=== PATIENT | male | born 1950 | race Caucasian/White ===

== ENCOUNTER 2018-01-06 14:29 | Inpatient (IN) | payer MEDICARE, OTHER ==
[2018-01-06] MEDS ORDERED: NS 0.9% 1000 ML* 1,000 ML IV ONE (15:58)
[2018-01-06] MEDS ORDERED: Morphine INJ* 4 MG/ML 1 ML CARPUJECT IV ONE ×2 (15:58→17:35)
[2018-01-06] MEDS ORDERED: Morphine INJ* 10 MG/ML 1 ML CARPUJECT ONE (16:11)
[2018-01-06 16:27] LABS: Urine Appearance Cloudy; Urine Blood Negative (Negative); Urine Color Yellow; Urine Ketones Negative (Negative); Urine Protein Negative (Negative); Urine Specific Gravity 1.019 (1.010-1.030); Urine Urobilinogen Negative (Negative)
[2018-01-06 17:20] LABS: ABS Basophils 0 10^3/ul (0-0.2); ABS Eosinophils 0.1 10^3/ul (0-0.6); ABS Lymphocytes 0.4 10^3/ul (1.0-4.8); ABS Monocytes 0.5 10^3/ul (0-0.8); ABS Neutrophils 2.9 10^3/ul (1.5-7.7); ABS Nucleated RBC 0 10^3/ul; Eosinophil % 2.8 % (0-6); Hematocrit 40 % (42-52); Hemoglobin 13.5 g/dl (14.0-18.0); Lymphocyte % 11.3 % (25-47); Mean Corpuscular HGB Conc 34 g/dl (31-36); Mean Corpuscular Hemoglobin 31 pg (27-31); Mean Corpuscular Volume 91 fL (80-94); Mean Platelet Volume 9 um3 (7.4-10.4); Nucleated Red Blood Cells % 0; Platelet Count 134 10^3/ul (150-450); Red Blood Count 4.37 10^6/ul (4.0-5.4); Red Cell Distribution Width 15 % (10.5-15); White Blood Count 3.9 10^3/ul (3.5-10.8)
--- NOTE | 2018-01-06 17:46 | RAD ---
INDICATION: RIGHT flank pain. Possible infected RIGHT kidney. Post cholecystectomy. COMPARISON: March 25, 2014 CT. TECHNIQUE: Multidetector CT images were obtained from the lung bases to the ischial tuberosities. Evaluation of the viscera is limited without IV contrast. Multiplanar reformation. REPORT: Unremarkable visualized inferior thorax. Post cholecystectomy. Unremarkable unenhanced liver. Negative for biliary dilatation. Moderately atrophic pancreas without suspicious finding. Upper normal size spleen. Negative for CT abnormality of the upper GI, small bowel, retrocecal appendix, or colon through the mid rectum. At the inferior rectum and anus there is nonspecific soft tissue thickening which extends posteriorly through the subcutaneous fat at the RIGHT margin of the ksenia cleft to the skin measuring up to 5 cm AP by 4.5 cm transverse by 5.4 cm cephalocaudal. This is a nonspecific finding and may represent scarring from a previous decubitus ulcer with history of decubitus ulcer, current inflammatory change, or potentially a neoplastic process. Negative for ascites, extra enteric gas, or significant hernias. Normal adrenal glands. Negative for nephrolithiasis or hydronephrosis. Unremarkable nondilated ureters. Distended urinary bladder with diffuse mild wall thickening. Extensive coarse calcification at the prostate. Symmetric seminal vesicles. Negative for lymphadenopathy. Atherosclerotic calcification of normal diameter abdominal aorta and iliac arteries. Physiologic distention of the IVC. Significant cephalocaudal widening of the L2-L3 disc space with osseous erosion of the inferior endplate of L2 and superior endplate of L3. In addition the L2 and L3 vertebral bodies are sclerotic compared with the remaining vertebral bodies. Paravertebral inflammatory change. Assessment of the central canal is limited by CT. Advanced degenerative arthropathy of the hips. Nonspecific chronic indolent calcification about the skeletal musculature surrounding the hips similar to the prior exam. Advanced diffuse skeletal muscle atrophy. No fracture evident. IMPRESSION: 1. The radiographic findings are highly suspicious for osteomyelitis discitis at the L2-L3 level. While there are some features that favor chronic involvement including sclerosis of both vertebral bodies given presence of paravertebral soft tissue inflammatory change and new finding compared with only relevant prior exam of 2013 acute osteomyelitis discitis should be considered. Epidural extension of the inflammatory processes not excluded on the basis of this exam. Correlate with clinical assessment and consider contrast-enhanced MRI for further evaluation if deemed appropriate. 2. At the inferior rectum and anus there is nonspecific soft tissue thickening which extends posteriorly through the subcutaneous fat at the RIGHT margin of the cleft to the skin measuring up to 5 cm AP by 4.5 cm transverse by 5.4 cm cephalocaudal. This is a nonspecific finding and may represent scarring from a previous decubitus ulcer with history of decubitus ulcer, current acute inflammatory change, or potentially a neoplastic process. 3. Negative for obstructive uropathy or perinephric inflammatory stranding to suggest pyelonephritis. Results discussed with Dr. No 01/06/2018 5:42 PM EST
[2018-01-06] MEDS ORDERED: Morphine INJ* 4 MG/ML 1 ML SYRINGE (NEW SYRINGE VERSION) ONE (17:51)
[2018-01-06] MEDS ORDERED: Bisacodyl SUPP* 10 MG SUPP PR PRN (19:44)
--- NOTE | 2018-01-06 19:53 | ED ---
Rohit Null Rebecca, scribed for Keyshawn No MD on 01/06/18 at 1551 . Back Pain - HPI Summary HPI Summary: Pt is a 67 y/o M who presents to ED c/o R flank pain. Sx began 2 days ago in the afternoon, worsening last night. Pain has been intermittent since onset, every few minutes, described as a sharp, stabbing pain. When present, pain is severe, ranked 8/10. Sx aggravated by sitting up and alleviated by nothing. Additionally c/o cough. Denies hematuria, dysuria, fever, chills, SOB and diaphoresis. PMHx kidney infections with the last incidence a few years ago. Sees his urologist every 6 months and is scheduled to see the office this month. PMHx paraplegia since 1974. - History of Current Complaint Chief Complaint: EDFlankPain Stated Complaint: POSSIBLE KIDNEY INFECTION RIGHT FLANK PAIN Hx Obtained From: Patient Onset/Duration: Still Present Timing: Intermittent Back Pain Location: Is Discrete @ - R flank Severity Currently: Severe Pain Intensity: 8 Pain Scale Used: 0-10 Numeric Character: Sharp Aggravating Symptom(s): Other - Sitting up Alleviating Symptom(s): Nothing Associated Signs And Symptoms: Positive: Other - Cough - Allergies/Home Medications Allergies/Adverse Reactions: Allergies Allergy/AdvReac Type Severity Reaction Status Date / Time MS Cephalosporins Allergy Unknown Verified 08/29/17 10:17 [Cephalosporins] Reaction Details MS Ciprofloxacin Allergy Unknown Verified 08/29/17 10:17 [Ciprofloxacin] Reaction Details MS Gentamicin [Gentamicin] Allergy Unknown Verified 08/29/17 10:17 Reaction Details MS Penicillins [Penicillins] Allergy Unknown Verified 08/29/17 10:17 Reaction Details MS Vancomycin [Vancomycin] Allergy Unknown Verified 08/29/17 10:17 Reaction Details Home Medications: Home Medications Cholecalciferol TAB* [Vitamin D TAB*] 5,000 units PO DAILY 01/06/18 [History Confirmed 01/06/18] Sulfamethox/Trimethoprim DS* [Bactrim DS 800/160 TAB*] 1 tab PO DAILY 01/06/18 [ History Confirmed 01/06/18] PMH/Surg Hx/FS Hx/Imm Hx Endocrine/Hematology History: Denies: Hx Diabetes Cardiovascular History: Denies: Hx Hypertension, Hx Pacemaker/ICD History: Reports: Hx Kidney Infection, Other Problems/Disorders - UTI'S Denies: Hx Renal Disease Musculoskeletal History: Reports: Other Musculoskeletal History - paraplegic, HX CELLULTISIS Sensory History: Reports: Hx Contacts or Glasses, Hx Vision Problem - EYE SURGERY, OPTIC NEURITIS Denies: Hx Hearing Aid Opthamlomology History: Reports: Hx Contacts or Glasses, Hx Vision Problem - EYE SURGERY, OPTIC NEURITIS Neurological History: Reports: 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 ( NO SENSORY/MOTOR FUNCTION BELOW T8), Other Neuro Impairments/Disorders - GUILLIAN BARRE SYNDROME Psychiatric History: Denies: Hx Panic Disorder - Surgical History Surgery Procedure, Year, and Place: gallbladder removal,optic neuritis, eye surgeries FOR LAZY EYE, questionable Guillan Novi syndrome, myocutaneous flap for right buttock decubitus ulcer 1992, R foot surgery, Hx Anesthesia Reactions: No Infectious Disease History: No Infectious Disease History: Reports: Hx of Known/Suspected MRSA - HX IN LEG WOUNDS Denies: Traveled Outside the [place] in Last 30 Days - Family History Known Family History: Positive: Hypertension, Other - [place] - Social History Alcohol Use: Daily Alcohol Amount: 1 drink per day Substance Use Type: Reports: None Type: Cigarettes Amount Used/How Often: half pack. day Length of Time of Smoking/Using Tobacco: 35 years Have You Smoked in the Last Year: Yes Review of Systems Negative: Fever, Chills, Skin Diaphoresis Positive: Cough. Negative: Shortness Of Breath Positive: flank pain - Right. Negative: dysuria, hematuria All Other Systems Reviewed And Are Negative: Yes Physical Exam - Summary Physical Exam Summary: Appearance: Well-appearing, Well-nourished Skin: Warm, Dry, No rash, 2 sores on the right foot, over the head of the 5th metatarsal and midfoot, laterally, that is about 1 cm in size with no surrounding cellulitis or erythema with no sensation over the area Eyes: Normal, PERRL, EOMI, sclera anicteric ENT: Normal Neck: Supple, nontender Respiratory: Clear to auscultation Cardiovascular: S1, S2, no murmur, no rub, no gallop Abdomen: Soft, nontender, no organomegaly Bowel sounds: Present Musculoskeletal: No edema, pulses symmetrical, no palpable pain, anesthesia up to T8 Neurological: A&Ox3, cranial nerves II-XII WNL, follows commands, answers questions appropriately, anesthesia up to T8 Psychiatric: affect normal, behavior appropriate, dressed appropriately, judgment intact Rectal: Some scarring from previous decubitus ulcers in the rectum and some prolapse of the anus Triage Information Reviewed: Yes Vital Signs On Initial Exam: Initial Vitals Temp Pulse Resp BP Pulse Ox 98.9 F 78 20 160/88 96 01/06/18 14:39 01/06/18 14:39 01/06/18 14:39 01/06/18 14:39 01/06/18 14:39 Vital Signs Reviewed: Yes Diagnostics - Vital Signs Vital Signs Temp Pulse Resp BP Pulse Ox 01/06/18 14:39 98.9 F 78 20 160/88 96 - Laboratory Result Diagrams: 01/06/18 17:10 01/06/18 17:10 Lab Statement: Any lab studies that have been ordered have been reviewed, and results considered in the medical decision making process. - CT Abd/Pel CT CT Interpretation: Positive (See Comments) - 1. The radiographic findings are highly suspicious for osteomyelitis discitis at the L2-L3 level. While there are some features that favor chronic involvement including sclerosis of both vertebral bodies given presence of paravertebral soft tissue inflammatory change and new finding compared with only relevant prior exam of 2013 acute osteomyelitis discitis should be considered. Epidural extension of the inflammatory processes not excluded on the basis of this exam. Correlate with clinical assessment and consider contrast-enhanced MRI for further evaluation if deemed appropriate. 2. At the inferior rectum and anus there is nonspecific soft tissue thickening which extends posteriorly through the subcutaneous fat at the RIGHT margin of the ksenia cleft to the skin measuring up to 5 cm AP by 4.5 cm transverse by 5.4 cm cephalocaudal. This is a nonspecific finding and may represent scarring from a previous decubitus ulcer with history of decubitus ulcer, current acute inflammatory change, or potentially a neoplastic process. 3. Negative for obstructive uropathy or perinephric inflammatory stranding to suggest pyelonephritis. Results discussed with Dr. No 2017 5:[address] No reviewed this radiology report. CT Interpretation Completed By: Radiologist Re-Evaluation - Re-Evaluation First Eval Re-Evaluation Time: 17:46 Comment: Rectal examination was done which shows some scarring from previous decubitus ulcers in the rectum and some prolapse of the anus. Second Eval Re-Evaluation Time: 18:10 Comment: Continues to have some pain, but less than before Back Pain Course/Dx - Course Assessment/Plan: Pt is a 67 y/o M who presents to ED c/o intermittent sharp, stabbing R flank pain for 2 days ago worsening last night. Pain is severe, ranked 8/10. Sx aggravated by sitting up. Additionally c/o cough. Denies hematuria, dysuria, fever, chills, SOB and diaphoresis. PMHx kidney infections with the last incidence a few years ago. Sees his urologist every 6 months and is scheduled to see the office this month. PMHx paraplegia since 1974. UA reveals UTI. CT Abd/Pel results above. In ED course, pt received fluids and morphine which improved sx. Discussed care of pt with Trevin Escamilla who accepts pt for admission. He will be admitted with Dx of osteomyelitis and UTI. He understands and agrees. Allergies and elevated BP noted. - Diagnoses Provider Diagnoses: Osteomyelitis, UTI (urinary tract infection) - Provider Notifications Discussed Care Of Patient With: Trevin Escamilla Time Discussed With Above Provider: 17:50 Instructed by Provider To: Other - Accepts pt for admission Discharge - Discharge Plan Condition: Fair Disposition: ADMITTED TO [facility] Referrals: No Primary Care Phys,NOPCP [Primary Care Provider] - The documentation as recorded by the Rohit gottlieb Rebecca accurately reflects the service I personally performed and the decisions made by me, Keyshawn No MD.
[2018-01-06] MEDS ORDERED: NS 0.9% IVPB SCH (20:00)
[2018-01-06] MEDS ORDERED: TIGECYCLINE IVPB SCH (20:00)
[2018-01-06] MEDS ORDERED: Vancomycin per Pharmacy* NOTE FOLLOW UP PRN (20:24)
[2018-01-06] MEDS ORDERED: Vancomycin(*) 1,500 MG in NS 0.9% 250 ML* 250 ML IVPB ONE (20:30)
--- NOTE | 2018-01-06 20:45 | RAD ---
Indication: Osteomyelitis discitis Comparison: CT abdomen of the same date and January 01, 2014 chest radiograph. Technique: Upright AP 2010 hours. FINDINGS: Accounting for superimposed soft tissues with large body habitus the lungs and pleural spaces are clear. The heart, pulmonary vasculature, and mediastinal contours are unremarkable. IMPRESSION: No evidence for acute intrathoracic disease.
[2018-01-06] MEDS: HYDROmorphone INJ* 2 MG/ML CARPUJECT SYRINGE IV SLOW PU PRN (21:18)
[2018-01-06] MEDS: Heparin VIAL(*) 5000 UNITS/ML VIAL (FIVE THOUSAND) SUBCUT SCH (21:19)
[2018-01-06] MEDS: Tamsulosin CAP* 0.4 MG PO SCH (21:20)
[2018-01-06] MEDS: NS 0.9% 1000 ML* 1,000 ML IV SCH (21:20)
[2018-01-06] MEDS: Ascorbic Acid TAB* 500 MG PO SCH (21:20)
[2018-01-06] MEDS: Methenamine Hippurate TAB* 1 GM TAB PO SCH (21:20)
[2018-01-06] MEDS: Cefepime 2 GM in Dextrose(*) 2 GM/50 ML BAG IV SCH (21:21)
--- NOTE | 2018-01-07 00:16 | HP ---
CC: TAMI; Dr. Jani Vargas * ADMISSION HISTORY AND PHYSICAL: DATE OF ADMISSION: 01/06/18 PRIMARY CARE DOCTOR: TAMI. MY ATTENDING WHILE IN THE HOSPITAL: Dr. Lisa Duenas.* (DICTATED BY BHAVIK KRISHNAN) PRIMARY UROLOGIST: Dr. Jani Vargas. CHIEF COMPLAINT: Severe intermittent right-sided abdominal pain. HISTORY OF PRESENT ILLNESS: Mr. Trinidad is a 67-year-old male with a past medical history significant for paraplegia at the T8 level from, I believe, transverse myelitis in 1974, decubitus ulcers with osteomyelitis of ischium, recurrent UTIs, optic neuritis, recurrent cellulitis of his lower extremities, who presents with 3 days of sharp, nonradiating, localized pain around what he describes his right kidney and points to his right side underneath his costal margin. The patient states this feels exactly like when he has previous pyelonephritis. The patient denies any associated symptoms such as fevers, chills, nausea, vomiting, diarrhea. The patient denies any palliating or provoking factors. It is not worse with movement or palpation. The patient states it is better with pain medication. The patient denies other sick contacts or recent illness. The patient states that he has had a decubitus ulcer in his back, which is fully healed now post muscle flap and that he has recurrent ulcer on his foot, which is only open wound, which he sees a medical office assistant instructor, but has not in longtime because he has been busy. The patient did not have any sensation from T8 down, so cannot state whether this is painful or it has gotten worse. The patient has also not followed with his primary care doctor in quite a while. The patient follows with Dr. Vargas as his primary caregiver and is currently on Hiprex and Bactrim for suppression of UTIs. The patient had an abdominal CT scan to evaluate for pyelonephritis while in the hospital and it was deemed that the patient had possible L2-L3 diskitis on CT scan. As such, we were asked to evaluate for admission. PAST MEDICAL HISTORY: Paraplegia at the T8 level, decubitus ulcer with associated osteomyelitis of the ischium, resolved, recurrent UTI, optic neuritis , cellulitis, transverse myelitis, decubitus ulcer of the foot, rotator cuff left shoulder pathology, and right shoulder biceps tendinitis. PAST SURGICAL HISTORY: Cholecystectomy, muscle flap. MEDICATIONS: 1. Advil 400 mg p.o. q.6 hours as needed. 2. Dulcolax suppository 10 mg ND as needed for constipation every 2 to 3 days. 3. Vitamin C 500 mg p.o. daily. 4. Hiprex 500 mg p.o. four times a day. 5. Flomax 0.4 mg p.o. daily. 6. Bactrim double strength 1 tab p.o. daily. 7. Vitamin D 5000 units p.o. daily. ALLERGIES: The patient has allergies to CEPHALOSPORINS, which include a gastrointestinal upset and diarrhea when taking KEFLEX. The patient has had a reaction of a rash to PENICILLIN, a reaction of a rash to VANCOMYCIN and GENTAMICIN, and a more severe rash when taking CIPRO on his butt that he describes as welting. FAMILY HISTORY: The patient's mother at age 72 of metastatic lung cancer. The patient's father at age 93 of heart attack. He also had diabetes type 2 and high blood pressure. The patient's maternal grandfather at age 58 of heart attack. The patient's maternal grandmother at age 75 with complications of diabetes. The patient's paternal grandfather of prostate cancer. The patient's paternal grandmother at 75 of renal failure. SOCIAL HISTORY: The patient smokes 3 to 4 cigarettes daily. The patient drinks 1 to 2 martinis containing 2 ounces a piece of vodka nightly. The patient denies ever using illicit drugs. The patient is employed as an service line coordinator. The patient is twice, in 1991. The patient is currently and has 2 children from each marriage. REVIEW OF SYSTEMS: A 14-point review of systems was reviewed and is negative except as above. PHYSICAL EXAMINATION GENERAL: The patient is a 67-year-old male, who appears stated age and sitting comfortably in bed, in no acute distress. VITAL SIGNS: Upon arrival to the emergency department, temperature 98.9, pulse rate 78, respiratory rate 20, oxygen saturation 96% on room air, blood pressure 168/88. HEENT: Head: Normocephalic, atraumatic. Sclerae anicteric. No conjunctival injection. Left-sided exotropia. Nasal mucosa moist. Oral mucosa moist. No pharyngeal erythema, discharge, or exudate. NECK: Supple, nontender. No lymphadenopathy. No carotid bruit auscultated. No tenderness over the spinous processes. RESPIRATORY: Rhonchi in the bilateral lower lobes, which improved with deep breathing. No adventitious lung sounds. Good air exchange bilaterally. Egophony negative. CARDIAC: Regular rate and rhythm. No clicks, murmurs, gallops, or rubs. Pulses 2+ in the bilateral dorsalis pedis, posterior tibialis, and radial areas. 1+ pitting edema in the bilateral lower extremities with chronic venous stasis ulcers. ABDOMEN: Soft, nontender, nondistended. Bowel sounds present. Normoactive in all 4 quadrants. No hepatosplenomegaly. No tenderness to palpation over the area of the patient's pain. GENITOURINARY: No suprapubic tenderness or CVA tenderness. The patient has a [place] catheter and is able to urinate without straight catheterization. NEURO: Cranial nerves II through XII intact except for above-stated exotropia. The patient has 5/5 strength and intact sensation to light touch in bilateral upper extremities. The patient has no sensation or strength in the bilateral lower extremities. The patient's reflexes are 2+ in bilateral biceps areas. The patient has no reflexes in the bilateral lower extremities. Babinski is nonreactive bilaterally. PSYCHIATRIC: The patient is pleasant and cooperative. Alert and oriented x3. SKIN: The patient had an approximately 2 cm x 2 cm ulcer on his lower foot without exposed bone or surrounding erythema. The patient has a healed decubitus ulcer on his buttock with surgical scars consistent with a myocutaneous flap. The patient has venous stasis ulcers in the bilateral lower extremities. The patient has no other rashes. DIAGNOSTIC STUDIES/LAB DATA: White blood cell count 3.9, red blood cell count 4.34, hemoglobin 13.5, hematocrit 40, MCV 91, MCH 31, MCHC 34, RDW 15, platelet count 134, MPV 9, lymphocyte percentage 7.2. Sodium 135, potassium 4.4, chloride 103, carbon dioxide 28, anion gap 4, BUN 12, creatinine 0.52, BUN- creatinine ratio 23, glucose 95, calcium 8.3. Bilirubin 1.3, AST 11, ALT 9, alkaline phosphatase 65. Total protein 5.9, albumin 3.4, globulin 2.5. Urine color yellow, cloudy, pH 5.0, specific gravity 1.019, positive nitrites and leukocyte esterase, 3+ white blood cells, 3+ red blood cells, positive squamous epithelial cells, 1+ bacteria. Abdomen and pelvis CT read as radiographic findings highly suspicious for osteomyelitis, diskitis of the L2-L3 level. There were some features to favor chronic involvement of both vertebral bodies, given presence of paravertebral soft tissue inflammatory change and new finding compared with only relevant prior exam of 2014 of acute osteomyelitis, diskitis should be considered. Epidural extension of inflammatory process is not excluded on the basis of this exam, correlate with clinical assessment and consider contrast-enhanced MRI for further evaluation if deemed appropriate. At the inferior rectum and anus, there is a nonspecific tissue thickening extends posterior through the subcutaneous fat to the right margin of the cleft to the skin measuring up to 5 cm AP x 5 cm transverse x 5.4 cm cephalocaudal. This is nonspecific finding and may represent scarring from previous decubitus ulcer with history of decubitus ulcer, acute inflammatory change represents the neoplastic process. Negative for obstructive uropathy or perinephric inflammatory stranding to suggest pyelonephritis. ASSESSMENT AND PLAN: Impression: 1. The patient is a 67-year-old male with paraplegia at the T8 level, who presents with sudden pain in his abdomen consistent with previous pyelonephritis but was found to have CT findings consistent with osteomyelitis, diskitis at the L2-L3 level. The patient also had a grossly positive UA and chronic ulcer on his foot. The patient will be admitted to the hospital for IV antibiotics, Neurosurgical and Infectious Disease consult, Wound consult, and supportive care. 2. Possible osteomyelitis, diskitis. The patient has CT findings consistent with osteomyelitis and diskitis at L2-L3. Neurosurgery and Infectious Disease consulted given the patient's reactions and lack of antibiotics that would cover urinary tract infection, diskitis, as well as possible foot pathogens. The patient will be started on cefepime and vancomycin despite reactions, which consists of GI upset with Keflex and possible rash when on vancomycin. When discussing this with Neurosurgery, they do not think that intervention will be needed at this time due to the patient's already paraplegic status and risks of said procedure. The patient will have an MRI of his spine with contrast to further elucidate his condition. Unable to determine if the patient has any neurological or spinal cord damage from this due to paraplegic status in his lower extremities. 3. Probably urinary tract infection. The patient has a grossly positive UA and long history of urinary tract infections. The patient is to be covered by cefepime. The patient should be continued on his Hiprex. The patient has no evidence of pyelonephritis on the CT scan. We will stop the patient's Bactrim in the hospital, but should be continued at discharge for suppression of urinary tract infection. 4. Paraplegia. Pursue aggressive anti-pressure therapies for the patient's flap and take pressure off his feet. 5. FEN. The patient will have fluids, normal saline at 125 mL an hour. The patient will have regular unrestricted diet. 6. Code status. The patient wants to be a full code. The patient's surrogate decision maker is his , Bridget Trinidad. 7. DVT prophylaxis. The patient will have heparin subcu and SCDs because he is a high risk. The patient will be admitted to medical floor as anticipated protracted length of stay. TIME SPENT: Approximately 75 minutes was spent on this admission, 45 of which was spent [id number] with the patient obtaining history and physical and discussing treatment plan. This plan has been discussed with my attending, Dr. Lisa Duenas, and she is in agreement. BHAVIK KRISHNAN [id number]/CPS #: [id number]
[2018-01-07] MEDS: Heparin VIAL(*) 5000 UNITS/ML VIAL (FIVE THOUSAND) SUBCUT SCH ×3 (05:28→21:49)
[2018-01-07] MEDS: HYDROmorphone INJ* 2 MG/ML CARPUJECT SYRINGE IV SLOW PU PRN (05:33)
[2018-01-07 05:44] LABS: ABS Basophils 0 10^3/ul (0-0.2); ABS Eosinophils 0 10^3/ul (0-0.6); ABS Lymphocytes 0.8 10^3/ul (1.0-4.8); ABS Monocytes 0.4 10^3/ul (0-0.8); ABS Neutrophils 1.8 10^3/ul (1.5-7.7); ABS Nucleated RBC 0 10^3/ul; Eosinophil % 1.2 % (0-6); Hematocrit 38 % (42-52); Hemoglobin 12.7 g/dl (14.0-18.0); Lymphocyte % 25.9 % (25-47); Mean Corpuscular HGB Conc 34 g/dl (31-36); Mean Corpuscular Hemoglobin 31 pg (27-31); Mean Corpuscular Volume 92 fL (80-94); Mean Platelet Volume 9 um3 (7.4-10.4); Nucleated Red Blood Cells % 0.1; Platelet Count 123 10^3/ul (150-450); Red Cell Distribution Width 15 % (10.5-15); White Blood Count 3.1 10^3/ul (3.5-10.8)
[2018-01-07 05:51] LABS: EGFR Non-African American 213.9 (>60)
[2018-01-07] MEDS: NS 0.9% 1000 ML* 1,000 ML IV SCH (07:53)
[2018-01-07] MEDS: Cefepime 2 GM in Dextrose(*) 2 GM/50 ML BAG IV SCH ×2 (07:54→19:34)
[2018-01-07] MEDS: Cholecalciferol TAB* 1000 UNITS PO SCH (09:05)
[2018-01-07] MEDS: Ascorbic Acid TAB* 500 MG PO SCH ×4 (09:05→21:47)
[2018-01-07] MEDS: Methenamine Hippurate TAB* 1 GM TAB PO SCH ×4 (09:05→21:47)
[2018-01-07] MEDS: Tamsulosin CAP* 0.4 MG PO SCH ×2 (09:05→21:47)
[2018-01-07] MEDS: Vancomycin(*) 1,000 MG in NS 0.9% 250 ML* 250 ML IVPB SCH ×3 (09:07→23:25)
--- NOTE | 2018-01-07 16:20 | PN ---
Subjective Date of Service: 01/07/18 Interval History: feeling better today. pain is completely resolved. afebrile since admission. Objective Active Medications: Ascorbic Acid (Vitamin C Tab*) 500 mg PO QID [facility] Last Admin: 01/07/18 13:46 Dose: 500 mg Bisacodyl (Dulcolax Supp*) 10 mg ME .Q2-3DAYS PRN PRN Reason: CONSTIPATION Cholecalciferol (Vitamin D Tab*) 5,000 units PO DAILY [facility] Last Admin: 01/07/18 09:05 Dose: 5,000 units Heparin Sodium (Porcine) (Heparin Vial(*)) 5,000 units SUBCUT Q8HR [facility] Last Admin: 01/07/18 13:46 Dose: 5,000 units Hydromorphone HCl (Dilaudid Inj*) 2 mg IV SLOW PU Q4H PRN PRN Reason: PAIN Last Admin: 01/07/18 05:33 Dose: 2 mg Cefepime HCl (Maxipime 2 Gm In Dextrose Duplex (*)) 2 gm in 50 mls @ 100 mls/ hr IV Q12H [facility] Last Admin: 01/07/18 07:54 Dose: 100 mls/hr Sodium Chloride (Ns 0.9% 1000 Ml*) 1,000 mls @ 125 mls/hr IV PER RATE [facility] Last Admin: 01/07/18 07:53 Dose: 125 mls/hr Vancomycin HCl 1,000 mg/ (Sodium Chloride) 250 mls @ 125 mls/hr IVPB Q8H [facility] Last Admin: 01/07/18 15:48 Dose: 125 mls/hr Methenamine Hippurate (Hiprex Tab*) 0.5 gm PO QID [facility] Last Admin: 01/07/18 13:45 Dose: 0.5 gm Pharmacy Consult (Vancomycin Per Pharmacy*) 1 note FOLLOW UP . PRN PRN Reason: PER PROTOCOL Pharmacy Profile Note (Vancomycin Trough Check) 1 note FOLLOW UP 0700 ONE Stop: 01/08/18 07:01 Tamsulosin HCl (Flomax Cap*) 0.4 mg PO BID [facility] Last Admin: 01/07/18 09:05 Dose: 0.4 mg Vital Signs - 8 hr 01/07/18 01/07/18 11:33 15:33 Temperature 98.5 F 98.0 F Pulse Rate 56 67 Respiratory 18 18 Rate Blood Pressure 119/59 130/67 (mmHg) O2 Sat by Pulse 94 94 Oximetry Oxygen Devices in Use Now: None Appearance: alert, nontoxic Eyes: - - left eye strabismus, PERRL Ears/Nose/Mouth/Throat: NL Teeth, Lips, Gums Neck: NL Appearance and Movements; NL JVP Respiratory: Symmetrical Chest Expansion and Respiratory Effort, Clear to Auscultation Cardiovascular: NL Sounds; No Murmurs; No JVD, RRR Abdominal: NL Sounds; No Tenderness; No Distention, No Hepatosplenomegaly, - - [place] cath in place with clear yellow urine Lymphatic: No Cervical Adenopathy Extremities: - Skin: - - 1cm ulcer on plantar surface of right foot, scant drainage, no erythema Neurological: Alert and Oriented x 3, - - b/l lower extremities flaccid. Result Diagrams: 01/07/18 05:27 01/07/18 05:27 Assess/Plan/Problems-Billing Assessment: - Patient Problems (1) Osteomyelitis Current Visit: Yes Status: Acute Code(s): M86.9 - OSTEOMYELITIS, UNSPECIFIED SNOMED Code(s): 32309107 Comment: concern for L2-L3 osteo on CT an MRI would confirm this, and rule in or out an epidural abscess. while there may be no neurologic benefit or harm from interventing if there is an abscess since he is already paralyzed, it may be worth knowing about an abscess because iv antibiotics are unlikely to adequately penetrate it. check MRI L-spine tomorrow follow up blood cultures consult ID (2) Diskitis Current Visit: Yes Status: Acute Code(s): M46.40 - DISCITIS, UNSPECIFIED, SITE UNSPECIFIED SNOMED Code(s): 7892434 Comment: as above (3) UTI (urinary tract infection) Current Visit: Yes Status: Acute Comment: culture shows e. coli; sensitivities pending (4) Paraplegia Current Visit: Yes Status: Acute Code(s): G82.20 - PARAPLEGIA, UNSPECIFIED SNOMED Code(s): 96597344 Comment: since 1974 from transverse myelitis
[2018-01-07] MEDS ORDERED: Gadoteridol* (CONTRAST) 279.3 MG/ML 10 ML IV ONE (17:52)
--- NOTE | 2018-01-07 18:49 | RAD ---
Indication: CT findings of osteomyelitis discitis at L2-L3. Comparison: January 06, 2018 CT. Technique: [employer] 1.5 Nathalie [id number] with GEM suite. Pre and postcontrast MRI lumbar sacral spine with 19 mL ProHance IV contrast. Report: Marked enlargement and T2 hyperintensity at the L2-L3 disc. Patchy enhancement throughout the L2 and L3 vertebral bodies on the postcontrast series with extension to the posterior elements with involvement of the bilateral L2-L3 facet joints and surrounding posterior multifidus lumborum musculature. Obscuration of the normal paraspinal soft tissue planes with heterogeneous enhancement on the postcontrast series. Based on correlation with CT the inflammatory process involving both of the atrophic psoas muscles and surrounds the posterior third margin of the infrarenal abdominal aorta and inferior vena cava. Epidural extension of inflammatory process greater on the RIGHT than the LEFT at the level of the inferior endplate of L2 measuring up to 5 mm anterior posterior and extending over 2.5 cm cephalocaudal. The epidural phlegmon/microabscess collection superimposed on advanced posterior element osteoarthritis results in severe acquired spinal stenosis at L2-L3. No additional sites of acute inflammatory change evident. Negative for fracture, spondylolysis, or spondylolisthesis. Multilevel degenerative spondylosis and posterior element osteoarthritis. At L4-L5 degenerative spondylosis and facet joint osteoarthritis results in mild bilateral foraminal stenosis. At L5-S1 there is severe bilateral foraminal stenosis. IMPRESSION: Osteomyelitis discitis at L2-L3 with associated epidural extension and along with hypertrophic posterior element hypertrophy resulting severe acquired central canal stenosis. Extension of the inflammatory process to the paravertebral soft tissues including the atrophic psoas muscles, abutting the posterior margins of the infrarenal abdominal aorta and inferior vena cava, and posterior multifidus lumborum musculature surrounding the facet joints.
[2018-01-08] MEDS: Heparin VIAL(*) 5000 UNITS/ML VIAL (FIVE THOUSAND) SUBCUT SCH ×3 (05:39→22:03)
[2018-01-08] MEDS: NS 0.9% 1000 ML* 1,000 ML IV SCH ×2 (05:42→22:30)
[2018-01-08 06:47] LABS: ABS Basophils 0 10^3/ul (0-0.2); ABS Eosinophils 0.1 10^3/ul (0-0.6); ABS Lymphocytes 0.8 10^3/ul (1.0-4.8); ABS Monocytes 0.3 10^3/ul (0-0.8); ABS Neutrophils 1.8 10^3/ul (1.5-7.7); ABS Nucleated RBC 0 10^3/ul; Eosinophil % 4.8 % (0-6); Hematocrit 36 % (42-52); Hemoglobin 12.7 g/dl (14.0-18.0); Lymphocyte % 26.2 % (25-47); Mean Corpuscular HGB Conc 35 g/dl (31-36); Mean Corpuscular Hemoglobin 31 pg (27-31); Mean Corpuscular Volume 90 fL (80-94); Mean Platelet Volume 9 um3 (7.4-10.4); Nucleated Red Blood Cells % 0.1; Platelet Count 123 10^3/ul (150-450); Red Blood Count 4.04 10^6/ul (4.0-5.4); Red Cell Distribution Width 15 % (10.5-15); White Blood Count 3.1 10^3/ul (3.5-10.8)
[2018-01-08] MEDS ORDERED: Vancomycin Trough Check NOTE FOLLOW UP ONE (07:00)
[2018-01-08 07:12] LABS: EGFR Non-African American 241.6 (>60)
[2018-01-08] MEDS: Vancomycin(*) 1,000 MG in NS 0.9% 250 ML* 250 ML IVPB SCH (08:19)
[2018-01-08] MEDS: Cholecalciferol TAB* 1000 UNITS PO SCH (08:19)
[2018-01-08] MEDS: Methenamine Hippurate TAB* 1 GM TAB PO SCH ×4 (08:19→20:13)
[2018-01-08] MEDS: Ascorbic Acid TAB* 500 MG PO SCH ×4 (08:19→20:13)
[2018-01-08] MEDS: Tamsulosin CAP* 0.4 MG PO SCH ×2 (08:19→20:13)
--- NOTE | 2018-01-08 08:26 | CONSULT ---
Consult Consult: WILY Flank pain HPI 67 yo patient with 40 plus year history of paraplegia presumably from diagnosis of transverse myelitis. Presented to ER with flank pain which historically for him has been indicator of pyelonephritis or UTI. As part of evaluation CT of abdomen/pelvis done suggesting discitis at L2-3 Patient admitted for antibiotic therapy and MRI done yesterday confirming discitis/osteo at L2-3 No change in sensory level per patient which is generally at T8. Exam consistent with paraplegia with T 8 sensory level [id number] Discitis Plan-no indication for surgery which patient has expressed no interest in anyway Needs PIC line with retirement antibiotics Patient anxious for discharge home where he is better able to perform his routine Full consult dictated
--- NOTE | 2018-01-08 10:41 | ECHO ---
Patient: MORA STYLES [facility] Rec#: [id number] : 1950 Date: 01/08/2018 Age: 67y Height: 180.3 cm / 71.0 in Weight: 90.7 kg / 199.9 lbs Sex: M BSA: 2.1 Room#: [facility] Admit Date#: 01/06/2018 Type: Inpatient Referring: Trevin Elena Reading: Charlie Carmen MD [employer] Manager: Jannie Costello RN RDCS Transthoracic Echocardiogram Indication: Sepsis, osteomyelitis BP: 148/72 HR: 61 Rhythm: NSR Findings History: Transverse myelitis, paraplegia, decubitus ulcers with osteomyelitis of the ischium, chronic foot ulcer, UTIs, smoker Technical Comments: The study quality is fair. The study is technically limited due to poor acoustic windows. The study is technically limited due to patient body habitus. The study is technically limited due to the patient's smoking history. Completed at 0955. Left Ventricle: The left ventricular chamber size is normal. Septal wall hypertrophy is observed. Global left ventricular wall motion and contractility are within normal limits. Left ventricular systolic function is at the lower limits of normal. The estimated ejection fraction is 50-55%. Normal left ventricular diastolic filling is observed. Left Atrium: The left atrial chamber size is normal. Right Ventricle: The right ventricular cavity size is normal. The right ventricular global systolic function is low normal. Right Atrium: The right atrial cavity size is normal. Aortic Valve: The aortic valve structure is not well visualized. The aortic valve leaflets are mildly thickened. There is no evidence of aortic regurgitation. There is no evidence of aortic stenosis. Mitral Valve: The mitral valve leaflets are mildly thickened. Mild subvalvular thickening of the mitral valve is visualized. There is mild mitral regurgitation. There is no evidence of mitral stenosis. Tricuspid Valve: The tricuspid valve leaflets are normal. There is trace to mild tricuspid regurgitation. There is no tricuspid stenosis. Pulmonic Valve: The pulmonic valve structure is not well visualized. There is no evidence of pulmonic regurgitation. There is no pulmonic stenosis. Pericardium: There is no significant pericardial effusion. A pericardial fat pad is visualized. Aorta: The ascending aorta is not well visualized. There is no dilatation of the aortic arch. There is no dilation of the aortic root. Pulmonary Artery: The main pulmonary artery is not well visualized. Venous: The inferior vena cava appears normal in size. There is a greater than 50% respiratory change in the inferior vena cava dimension. Conclusions The study is technically limited due to poor acoustic windows. Global left ventricular wall motion and contractility are within normal limits. Left ventricular systolic function is at the lower limits of normal. The estimated ejection fraction is 50-55%. The aortic valve leaflets are mildly thickened. There is no evidence of aortic regurgitation. Mild subvalvular thickening of the mitral valve is visualized. There is mild mitral regurgitation. There is trace to mild tricuspid regurgitation. There is no significant pericardial effusion. No obvious vegeatations however image quality is not good enough to excluded Measurements Name Value Normal Range RVDdMajor (2D) 3.3 cm (2.2 - 4.4) RAd ISD 4CH 4.9 cm (3.4 - 4.9) RA (A4C)W 3.7 cm (2.9 - 4.6) IVSd (2D) 1.1 cm (0.6 - 1) LVPWd (2D) 1 cm (0.6 - 1) LVIDd (2D) 3.7 cm (3.6 - 5.4) LVIDs (2D) 2.4 cm - LV FS (2D) 35 % (25 - 45) Aortic Annulus 1.8 cm (1.4 - 2.6) Ao root diameter (2D) 3.2 cm (2.1 - 3.5) Aortic arch 2.6 cm (1.8 - 3.4) LA dimension (AP) 2D 3.3 cm (2.3 - 3.8) LAd ISD 4CH 4.3 cm (2.9 - 5.3) LA ISD 4CH W 3.8 cm (2.5 - 4.5) Name Value Normal Range LA ESV SP 4CH (A/L) 42 ml - LA ESV SP 2CH (A/L) 39 ml - LA ESV BP (A/L) 41 ml - LA ESV BP (A/L) index 19.2 ml/m2 - LA ESV SP 4CH (MOD) 36 ml - LA ESV SP 2CH (MOD) 35 ml - Name Value Normal Range MV E-wave Vmax 0.81 m/sec - MV deceleration time 215 msec - MV A-wave Vmax 0.77 m/sec - MV E:A ratio 1 ratio - LV septal e' Vmax 0.12 m/sec - LV lateral e' Vmax 0.12 m/sec - LV E:e' septal ratio 6.8 ratio - LV E:e' lateral ratio 6.8 ratio - Name Value Normal Range AV Vmax 1.1 m/sec - AV VTI 25.3 cm - AV peak gradient 4.4 mmHg - AV mean gradient 2.7 mmHg - LVOT Vmax 0.99 m/sec - LVOT VTI 20.9 cm - LVOT peak gradient 3.9 mmHg - LVOT mean gradient 1.9 mmHg - SEGUN Vmax 0.57 m/sec - Name Value Normal Range TR Vmax 2.5 m/sec - TR peak gradient 25 mmHg - RAP 3 mmHg - RVSP 28 mmHg - IVC diameter 1.7 cm - Name Value Normal Range PV Vmax 0.8 m/sec -
[2018-01-08] MEDS: Cefepime 2 GM in Dextrose(*) 2 GM/50 ML BAG IV SCH ×2 (12:08→12:17)
[2018-01-08] MEDS: Vancomycin(*) 1,250 MG in NS 0.9% 250 ML* 250 ML IVPB SCH ×2 (16:21→23:31)
--- NOTE | 2018-01-08 17:37 | PN ---
Subjective Date of Service: 01/08/18 Interval History: no overnight events, he feels better. pain is gone. Family History: Unchanged from Admission Social History: Unchanged from Admission Past Medical History: Unchanged from Admission Objective Active Medications: Ascorbic Acid (Vitamin C Tab*) 500 mg PO QID [facility] Last Admin: 01/08/18 13:49 Dose: 500 mg Bisacodyl (Dulcolax Supp*) 10 mg CO .Q2-3DAYS PRN PRN Reason: CONSTIPATION Cholecalciferol (Vitamin D Tab*) 5,000 units PO DAILY [facility] Last Admin: 01/08/18 08:19 Dose: 5,000 units Heparin Sodium (Porcine) (Heparin Vial(*)) 5,000 units SUBCUT Q8HR [facility] Last Admin: 01/08/18 13:51 Dose: 5,000 units Hydromorphone HCl (Dilaudid Inj*) 2 mg IV SLOW PU Q4H PRN PRN Reason: PAIN Last Admin: 01/07/18 05:33 Dose: 2 mg Sodium Chloride (Ns 0.9% 1000 Ml*) 1,000 mls @ 125 mls/hr IV PER RATE [facility] Last Admin: 01/08/18 05:42 Dose: 125 mls/hr Vancomycin HCl 1,250 mg/ (Sodium Chloride) 250 mls @ 125 mls/hr IVPB Q8H [facility] Last Admin: 01/08/18 16:21 Dose: 125 mls/hr Ceftriaxone Sodium 2 gm/ (Sodium Chloride) 100 mls @ 200 mls/hr IVPB Q24H [facility] Methenamine Hippurate (Hiprex Tab*) 0.5 gm PO QID [facility] Last Admin: 01/08/18 13:49 Dose: 0.5 gm Pharmacy Consult (Vancomycin Per Pharmacy*) 1 note FOLLOW UP . PRN PRN Reason: PER PROTOCOL Pharmacy Profile Note (Vancomycin Trough Check) 1 note FOLLOW UP 0700 ONE Stop: 01/10/18 07:01 Tamsulosin HCl (Flomax Cap*) 0.4 mg PO BID [facility] Last Admin: 01/08/18 08:19 Dose: 0.4 mg Vital Signs - 8 hr 01/08/18 01/08/18 11:20 15:17 Temperature 98.3 F 98.5 F Pulse Rate 58 60 Respiratory 17 16 Rate Blood Pressure 143/73 156/85 (mmHg) O2 Sat by Pulse 96 97 Oximetry Oxygen Devices in Use Now: None Appearance: well appearing, nontoxic Eyes: No Scleral Icterus, - - left eye strabismus Ears/Nose/Mouth/Throat: NL Teeth, Lips, Gums Neck: NL Appearance and Movements; NL JVP Respiratory: Symmetrical Chest Expansion and Respiratory Effort, Clear to Auscultation Cardiovascular: NL Sounds; No Murmurs; No JVD, RRR Abdominal: NL Sounds; No Tenderness; No Distention, - - no cva tenderness Lymphatic: No Cervical Adenopathy Neurological: - - no point tenderness over spinous processes. flaccid lower extremities. 1cm ulcer plantar surface of right foot at base of hallux Result Diagrams: 01/08/18 06:29 01/08/18 06:33 Microbiology and Other Data: Microbiology 01/06/18 18:30 Aerobic Blood Culture - Preliminary Blood Venous No Growth Day 1 Anaerobic Blood Culture - Preliminary No Growth Day 1 01/06/18 18:35 Aerobic Blood Culture - Preliminary Blood Venous No Growth Day 1 Anaerobic Blood Culture - Preliminary No Growth Day 1 Assess/Plan/Problems-Billing Assessment: 67 yo man with T8 paralysis since 1974 due to transverse myelitis admitted with flank pain that he thought was pyelonephritis but CT showed diskitis, and MRI now shows osteomyelitis and epidural abscess. - Patient Problems (1) Epidural abscess Current Visit: Yes Status: Acute Code(s): G06.2 - EXTRADURAL AND SUBDURAL ABSCESS, UNSPECIFIED SNOMED Code(s): 67730365 Comment: at L2-3 with no neurologic sequelae due to paralysis from T8 still, appreciate ID and Neurosurgery impression re: conservative versus operative management of this abscess continue vanc/cefepime for now; blood cultures remain negative, so drainage would be helpful if just to know what organism to treat will order picc (2) Osteomyelitis Current Visit: Yes Status: Acute Code(s): M86.9 - OSTEOMYELITIS, UNSPECIFIED SNOMED Code(s): 92157240 Comment: as above; continue vanc and cefepime (3) Diskitis Current Visit: Yes Status: Acute Code(s): M46.40 - DISCITIS, UNSPECIFIED, SITE UNSPECIFIED SNOMED Code(s): 1285901 Comment: as above (4) UTI (urinary tract infection) Current Visit: Yes Status: Acute Comment: culture shows e. coli sensitive to cefepime (5) Paraplegia Current Visit: Yes Status: Acute Code(s): G82.20 - PARAPLEGIA, UNSPECIFIED SNOMED Code(s): 27589202 Comment: since 1974 from transverse myelitis Status and Disposition: plan for picc tomorrow; dispo pending surgical re-evaluation
[2018-01-08] MEDS ORDERED: cefTRIAXone(*) 2 GM in NS 0.9% 100 ML* 100 ML IVPB SCH (18:00)
[2018-01-08] MEDS: Collagenase 250 MG/GM OINT* 30 GM TOPICAL SCH (19:50)
[2018-01-08] MEDS ORDERED: Cefepime 2 GM in Dextrose(*) 2 GM/50 ML BAG IV SCH (22:00)
--- NOTE | 2018-01-09 01:18 | CONS ---
CONSULTATION REPORT: DATE OF CONSULT: 01/08/18 REQUESTING PROVIDER: BHAVIK Velasquez CONSULTING SERVICE: Infectious Disease. REASON FOR CONSULT: Vertebral osteo, diskitis and epidural abscess. IMPRESSION: 1. Right flank and abdominal pain. CT showed and was confirmed by MRI vertebral osteo, diskitis at L2- L3 with an epidural abscess and paravertebral and psoas phlegmon. It is usually gram-positive, particularly staphylococcus; however, he does have chronic urinary tract infections due to Escherichia coli and that is a consideration as well given the connection with Batsen's plexus. 2. Long-standing T8 spinal level due to transverse myelitis. 3. Decubitus ulcer with ischial osteomyelitis, treated with long-term IV antibiotics. 4. Optic neuritis. 5. Allergy listed to CEPHALOSPORIN causing GI upset and diarrhea. He is tolerating cefepime. Rash due to PENICILLIN. Rash due to VANCOMYCIN, which he has not developed so far while on it. Rash to CIPRO, it sounds like hives. RECOMMENDATIONS: Continue vancomycin goal trough 15 to 20. Stop cefepime. We will start ceftriaxone 2 g a day given the E. coli he grows as it is ceftriaxone sensitive. He will need 8 weeks of IV antibiotics with weekly CBC, CMP, CRP, and vancomycin trough, which I have ordered as well as a PICC line. HISTORY OF PRESENT ILLNESS: This is a 67-year-old man with a history of T8 spinal level, which is chronic and longstanding due to transverse myelitis, admitted with right flank pain, which he associated with his usual pyelonephritis. He had a CT of the abdomen and pelvis in the emergency room that showed osteo diskitis at L2- L3, which is confirmed by MRI. There was some soft tissue paravertebral inflammatory change as well, which is new compared to 2014. He has been on vancomycin and cefepime here tolerating it well. He was seen by Neurosurgery and given his history of T8 spinal level, no surgical intervention is planned. He has had no fevers, chills, or sweats. PAST MEDICAL HISTORY: 1. Transverse myelitis and paraplegia at T8 level since 1974. 2. Optic neuritis. 3. History of decubitus ulcer and osteomyelitis, resolved. 4. Recurrent urinary tract infections, on suppressive Bactrim. 5. Ulcer of the foot. 6. Left shoulder rotator cuff disease. 7. Status post cholecystectomy. 8. Status post muscle flap. MEDICATIONS: 1. Vitamin C. 2. Cholecalciferol. 3. Heparin subcutaneous injection. 4. Dilaudid. 5. Cefepime 2 g every 12 hours. 6. Methenamine. 7. Tamsulosin. 8. Vancomycin 1250 mg every 8 hours. ALLERGIES: CEPHALOSPORINS, PENICILLIN, VANCOMYCIN, GENTAMICIN, CIPRO. FAMILY HISTORY: No recurrent infections. SOCIAL HISTORY: He lives in [place]. 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 No travel. No sick contacts. REVIEW OF SYSTEMS: All negative to 14-point review of systems except as noted above. PHYSICAL EXAM: Vital Signs: Temperature 37, heart rate 60, respiratory rate 17 , blood pressure 140/70, oxygen saturation 96% on room air. In general, he is awake, in no acute distress. Neurologic: He is oriented x3. Follows all commands. Strength is 5/5 in the biceps, triceps, wrist flexors and extensors. No sensation to touch in the feet bilaterally. HEENT: There is no conjunctival hemorrhage. Oropharynx is without lesions. Neck is supple. Lymph Nodes: There is no inguinal, axillary, or epitrochlear lymphadenopathy. Heart has regular rate and rhythm without murmurs, rubs, or gallops. Lungs are clear to auscultation bilaterally. Abdomen: Soft. There are bowel sounds present. Skin: There is no rash or splinter hemorrhages. Musculoskeletal: No spine tenderness to palpation. LABORATORY DATA: White blood cell count 3, hemoglobin 12, platelets 123. Creatinine is 0.3. Urinalysis shows leukocyte esterase. No blood. Please see impressions and recommendations outlined above. I have discussed with Dr. Pierce. Thank you for asking me to see Mr. Trinidad in consultation. [id number]/[facility] #: [id number] [facility]ITALKusum
[2018-01-09] MEDS: Heparin VIAL(*) 5000 UNITS/ML VIAL (FIVE THOUSAND) SUBCUT SCH ×2 (05:56→13:20)
[2018-01-09] MEDS: Vancomycin(*) 1,250 MG in NS 0.9% 250 ML* 250 ML IVPB SCH ×2 (07:49→15:16)
[2018-01-09] MEDS: Methenamine Hippurate TAB* 1 GM TAB PO SCH ×2 (07:50→13:20)
[2018-01-09] MEDS: Ascorbic Acid TAB* 500 MG PO SCH ×2 (07:50→13:20)
[2018-01-09] MEDS: Tamsulosin CAP* 0.4 MG PO SCH (07:50)
[2018-01-09] MEDS: Cholecalciferol TAB* 1000 UNITS PO SCH (10:22)
[2018-01-09] MEDS: Collagenase 250 MG/GM OINT* 30 GM TOPICAL SCH (10:23)
[2018-01-09 16:39] VITALS: BP 163/90
--- NOTE | 2018-01-09 17:04 | PN ---
Progress Note - Progress Note Date of Service: 01/09/18 SOAP: Subjective: CC: spine infection HPI: 67 year old man with T7 spinal level admitted with flank pain; MRI showed lumbar osteodiskitis, comfirmed on MR which also showed small epidural and paraspinal infection. No fever, rash, or diarrhea. Objective: Vital Signs Temp 36.4 C 01/09/18 15:42 Pulse 61 01/09/18 15:42 Resp 18 01/09/18 15:42 BP 163/90 01/09/18 15:42 Pulse Ox 96 01/09/18 15:42 Intake & Output 01/08/18 01/09/18 01/09/18 18:59 06:59 18:59 Intake Total 0661 550 7536 Output Total 2800 1250 550 Balance -1611 -460 1901 Intake: IV Fluids 599 300 ABX - VANCOMYCIN 265 NS (0.9%) 334 300 IVPB 1591 ABX - VANCOMYCIN 589 NS (0.9%) 1002 Oral 590 490 860 Output: Urine 2800 1250 550 Other: # Bowel Movements 0 0 Gen:awake, no distress HEENT:PERRL, MMM Heart:RRR no murmur Lungs:CTA BL Abd:+BS NTND soft Skin: no rash Assessment: 1. L2-3 vertebral osteodiskitis, epidural abscess, paraspinal muscle infection 2. T7 spinal level 3. neurogenic bladder 4. allergy to vanco and cephalosporin, tolerating both well Plan: 1. continue vanco goal tr 15-20, ceftriaxone 2 gm daily, add on CRP; weekly cbc , cmp, crp ordered for home draw fu with me 2 weeks 35 minutes floor time >50% face to face discussing follow up plans, monitoring, side effects
[2018-01-10] MEDS ORDERED: Vancomycin Trough Check NOTE FOLLOW UP ONE (07:00)
--- NOTE | 2018-01-10 12:14 | DS ---
DISCHARGE SUMMARY: DATE OF ADMISSION: 01/06/18 DATE OF DISCHARGE: 01/09/18 ADMITTING PROVIDER: BHAVIK Velasquez ATTENDING PHYSICIANS: Jacinda Pierce DO and Terry Diallo MD (on discharge). PRIMARY CARE DOCTOR: Through the [place], last saw BHAVIK Walker PRIMARY UROLOGIST: Dr. Jani Vargas DRIVER ENGINEER NEUROSURGEON: Dr. Jurado DRIVER ENGINEER INFECTIOUS DISEASE: Dr. Srinivasan Malcolm CHIEF COMPLAINT: Severe intermittent right-sided abdominal pain. PRINCIPAL DIAGNOSIS: L2-L3 diskitis with epidural abscess; no surgical intervention performed, requiring 8 weeks of IV antibiotics. HISTORY OF PRESENT ILLNESS AND HOSPITAL COURSE: Mr. Delroy Trinidad is a 67- year-old male with past medical history significant for T8 paraplegia secondary to transverse myelitis in 1974, decubitus ulcers with osteomyelitis of the ischium, recurrent UTIs, optic neuritis, cellulitis of his lower extremities presented with 3 days of sharp nonradiating localized pain near his right kidney and right costal margin, felt like his previous episode of pyelonephritis. Denied any fevers, chills, nausea, vomiting, diarrhea. He attested to recurrent ulcer on his right foot and saw a sales agent insurance, Dr. Daljit Rodriguez, but not in a while. He is on chronic Bactrim for UTI suppressive therapy along with Hiprex. He had a CT of the abdomen to evaluate for pyelonephritis, which demonstrated L2-L3 diskitis. The CT impression had some features that favor chronic involvement including sclerosis of both vertebral bodies (L2, L3) given presence of paravertebral soft tissue inflammatory changes as well as new findings compared with the prior 2013 study concerning for acute osteomyelitis, diskitis. There was no obstructive uropathy or perinephric inflammatory stranding, this was just pyelonephritis. He had a lumbar spine MRI with and without contrast, which showed osteomyelitis, diskitis at L2-L3 with associated epidural extension along with hypertrophic posterior element hypertrophy resulting in severe acquired central canal stenosis. There was extension of the inflammatory process to the paravertebral soft tissues including the atrophic psoas muscles, abutting the posterior margins of the infrarenal abdominal aorta and inferior vena cava and posterior multifidus lumborum musculature surrounding the facet joints. Dr. Jurado of Neurosurgery was consulted on hospital day #2 and did not think there was any indication for a surgery in part given his T8 paraplegia. Dr. Malcolm evaluated the patient. Of note, he also had a positive urine culture, which grew greater than 100,000 E. coli sensitive to ceftriaxone. There was deemed to be coverage both for likely gram-positive, particularly Staphylococcus coverage, but also given the UTI additional gram-negative coverage given the connection with the Clive's plexus. He was recommended 8 weeks of vancomycin with goal trough 15 to 20. He has initially been started on cefepime, was transitioned to ceftriaxone and additional 8 weeks of that as well with weekly CBC, CMP, CRP, and vancomycin trough. PICC line was placed in the right upper extremity. Home IV infusions of antibiotics were arranged with [facility] and visiting nursing services. His is familiar with giving antibiotics through IVs in the past. He was eager for discharge. He wanted to follow up with [facility]. He plans to likely get a second opinion about the need for potential further surgical intervention in [place]. Of note, his blood cultures were negative x2 days. He did have a transthoracic echocardiogram, which showed an ejection fraction of 50% to 55%, normal diastolic filling observed, and no obvious vegetations, though image quality was not good enough to exclude this possibility. DISCHARGE MEDICATIONS: Include: 1. Ascorbic acid 500 mg p.o. q.i.d. 2. Bisacodyl suppository 10 mg per rectum 2 to 3 times a day p.r.n. for constipation. 3. Cholecalciferol 5000 units p.o. daily. 4. Methenamine hippurate tab 500 mg p.o. q.i.d. 5. Vancomycin 1500 mg q. 12 hours. 6. Ceftriaxone 2 g q. 24 hours. Of note, his Bactrim prophylaxis was held given the initiation of these two antibiotics. DIET: No restrictions. ACTIVITY LEVEL: No restrictions, though as noted he is able drive himself and is quite independent at baseline. FOLLOWUP: Please follow up with Dr. Malcolm within 4 weeks. Also recommended to follow up with [facility] and [facility], last seen was BHAVIK Walker. Can also follow up with Dr. Jani Vargas, who he seemingly has been using more as a primary care doctor in recent months and years. The patient will need weekly labs, CMP, CRP, CBC, vanc trough to be sent to Dr. Malcolm's office. TIME SPENT: Time spent on discharge was 35 minutes. [id number]/[facility] #: [id number]
== END 2018-01-09 17:04 | disposition home or self-care (01) | DRG 95 ==
LOC: ED 14:29 → SSU 18:24
PROVIDERS: ADMIT Internal Medicine; ATTEND Internal Medicine
PROC: 05H633Z Insertion of Infusion Device into Left Subclavian Vein, Percutaneous Approach (ICD-10-PCS; principal; 2018-01-08)
DX: G06.2 Extradural and subdural abscess, unspecified (principal); G82.20 Paraplegia, unspecified; L89.899 Pressure ulcer of other site, unspecified stage; M46.26 Osteomyelitis of vertebra, lumbar region; H46.9 Unspecified optic neuritis; N39.0 Urinary tract infection, site not specified; F17.210 Nicotine dependence, cigarettes, uncomplicated; M46.46 Discitis, unspecified, lumbar region; B96.20 Unspecified Escherichia coli [E. coli] as the cause of diseases classified elsewhere; I87.8 Other specified disorders of veins; Z88.1 Allergy status to other antibiotic agents; Z88.0 Allergy status to penicillin; Z88.8 Allergy status to other drugs, medicaments and biological substances; Z79.1 Long term (current) use of non-steroidal anti-inflammatories (NSAID); Z79.899 Other long term (current) drug therapy; Z80.1 Family history of malignant neoplasm of trachea, bronchus and lung; Z80.42 Family history of malignant neoplasm of prostate; Z83.3 Family history of diabetes mellitus; Z82.49 Family history of ischemic heart disease and other diseases of the circulatory system
CPT/HCPCS: 36415; 71045; 72158; 74176; 80048; 80053; 80202; 81003; 81015; 83735; 85025; 86140; 87040; 87077; 87086; 87186; 93306; 99284; 99406; A9270-GY; A9579; C1751; J0692; J0696; J1170; J1644; J2270; J3370

== ENCOUNTER 2024-06-11 19:46 | Observation (INO) ==
[2024-06-11 21:07] LABS: Hematocrit 35.3 % (38-53); Hemoglobin 11.9 g/dL (13.2-16.3); Mean Corpuscular Hemoglobin 29.3 pg (27-33); Mean Corpuscular Hgb Conc 33.6 g/dL (31-36); Mean Corpuscular Volume 87.2 fL (80-97); Mean Platelet Volume 7.9 fL (7.5-11.2); Platelet Count 214 10^3/uL (150-450); Red Blood Count 4.05 10^6/uL (4.06-5.63); Red Cell Distribution Width 14.9 % (12-17); White Blood Count 11.4 10^3/uL (3.6-10.2)
[2024-06-11 21:16] LABS: Activated Partial Thrombo Time 30.9 seconds (26.0-38.0); INR 1.36 (0.83-1.13)
[2024-06-11] MEDS: Ondansetron 4 mg VIAL 2 MG/ML 2 ml VIAL IV ONE (21:40)
[2024-06-11] MEDS: Lactated Ringers 1000 ml BAG 1,000 ML IV ONE (21:45)
[2024-06-11] MEDS: Cefepime 2 GM in Dextrose 2 GM/50 ML BAG IV ONE (21:50)
[2024-06-11 21:54] LABS: ABS Lymphocytes 0.4 10^3/uL (1.0-4.8); ABS Monocytes 0.6 10^3/uL (0.0-1.1); ABS Neutrophils 10.3 10^3/uL (1.5-7.6); Lymphocyte % 3.7 %
[2024-06-11 22:11] LABS: Albumin 2.8 g/dL (3.2-5.2); C Reactive Protein 216.67 mg/L (<8.01); Calcium 7.9 mg/dL (8.6-10.3); Creatinine, Serum 0.51 mg/dL (0.67-1.17); Globulin 2.8 g/dL (2-4); Potassium 3.4 mmol/L (3.5-5.0); Total Bilirubin 1.6 mg/dL (0.2-1.0); Total Protein 5.6 g/dL (6.4-8.9); eGFR CKD-EPI 106.4 (>60)
[2024-06-11 22:54] LABS: High Sensitivity Troponin 1 Hr 17 pg/mL (<20)
[2024-06-11] MEDS: Iohexol 350 (CONTRAST) 500 ML MDV IV ONE (22:59)
[2024-06-12] MEDS: DOXYcycline 100 MG in NS 0.9% 250 ml 250 ML IVPB ONE (00:47)
[2024-06-12] MEDS: Enoxaparin 40 MG/0.4 ML SYR SUBCUT SCH (06:28)
[2024-06-12] MEDS ORDERED: Vancomycin per Pharmacy 1 EA NOTE FOLLOW UP SCH (08:00)
[2024-06-12 08:56] LABS: Calcium 7.4 mg/dL (8.6-10.3); Creatinine, Serum 0.57 mg/dL (0.67-1.17); Potassium 3.9 mmol/L (3.5-5.0); eGFR CKD-EPI 102.9 (>60)
[2024-06-12 11:39] VITALS: BP 119/56
== END 2024-06-12 11:40 | disposition left against medical advice (07) ==
LOC: EDHOLD 19:46 → ED 19:46 → SUATTDRO 06-12 02:25 → EDHOLD 06-12 11:39
PROVIDERS: ADMIT Internal Medicine; ATTEND Internal Medicine